=== PATIENT | female | born 1985 | race Caucasian/White ===

== ENCOUNTER 2023-09-08 14:22 | Emergency (ER) | payer SELFPAY ==
[2023-09-08 14:27] VITALS: BP 148/85; PULSE 96; RESP 16; TEMP 36.9; O2SAT 98; BMI 30.4
--- NOTE | 2023-09-08 15:03 | W.ED.EXTPRO ---
HPI - Extremity Problem General: Chief complaint: Extremity Problem,Nontraumatic Stated complaint: left leg pain Time Seen by Provider: 09/08/23 14:50 Source: patient Mode of arrival: ambulatory History of Present Illness: 37-year-old female presents to the emergency room with complaints of tender knotted areas under the skin bilaterally on her legs particularly on her left leg and posterior popliteal fossa. She is not had any chest pain or shortness of breath she is currently 28 weeks . No history of DVT she has been taking baby aspirin daily. MD Complaint: extremity pain Onset (ago): day(s) Relieving factors: nothing Exacerbating factors: nothing Associated symptoms: Deny chest pain, fever(s) or rash Review of Systems Const: Denies: fever(s) or chills Card: Denies: chest pain Resp: Denies: dyspnea GI: Denies: abdominal pain : Denies: dysuria, urinary frequency or urinary urgency Musc: Denies: neck pain or back pain Skin/Breast: Denies: rash Physical Exam Const: COMMON NORMALS: no acute distress GENERAL APPEARANCE: cooperative and comfortable ORIENTATION/CONSCIOUSNESS: Yes awake, Yes oriented to person, Yes oriented to place and Yes oriented to time HENMT: COMMON NORMALS: normocephalic, atraumatic and hearing grossly normal bilaterally HEAD & SCALP: normocephalic and atraumatic Resp: COMMON NORMALS: normal respiratory effort, No retractions, No use of accessory muscles and clear to auscultation bilaterally AUSCULTATION: clear to auscultation bilaterally Cardio: COMMON NORMALS: regular rate, regular rhythm and No murmurs present (Cardio) RATE: regular rate RHYTHM: regular rhythm Extremity: OTHER: Bilaterally patient has superficial thrombophlebitis that return to the touch palpable immediately underneath the surface of the skin both extremities negative Homans Neuro: SENSORIUM/ORIENTATION: Yes oriented to person, Yes oriented to place and Yes oriented to time Skin: COMMON NORMALS: no rashes or lesions noted GENERAL SKIN EXAM: no rashes or lesions noted Course Vital Signs: Vital signs: Vital Signs Temperature 98.4 F 09/08/23 14:27 Pulse Rate 96 09/08/23 14:27 Respiratory Rate 16 09/08/23 14:27 Blood Pressure 148/85 09/08/23 14:27 Pulse Oximetry 98 09/08/23 14:27 Oxygen Delivery Me thod Room Air 09/08/23 14:27 MDM - Extremity (Nontraumatic) Medical Decision Making Discussed DVT versus superficial thrombophlebitis. We will discharge patient home she can use ibuprofen but should not use it for more than the next 7 days for milligrams 3 times daily at the most topical moist heat and recheck if not improving. No radiology studies performed this visit Discharge Plan Discharge Patient Disposition: Home Clinical Impression: Superficial thrombophlebitis Condition: Stable Discharge Orders: Discharge ED (Routine); Ordered 09/08/23 Ordered By: Luis Manuel Jacobs Discharge Diet: Usual diet Discharge Activity: Increase activity as tolerated Patient Instructions: Superficial Thrombophlebitis (ED), Opioid Safety, Pain Management Activity Restrictions/Additional Instructions: Thank you for choosing [facility] for your healthcare needs today. Please realize this is an emergency room and that we are providing you with a medical screening exam and this may not be complete and all inclusive of all the testing and or work up that you may need to determine your ailment or severity of your illness. It is very important that you follow up as instructed or that you return to the Emergency Department should you have concerns or if your condition changes or worsens in any way. You were seen today with superficial thrombophlebitis. See the education instruction sheet that were given. You can use ibuprofen 400 mg 3 times a day but would not take this for more than the next 7 days because of the point at which you are in your . Follow-up if any further problems. Coding Level of Care Code ED [employer] for [employer]vin Vega
== END 2023-09-08 15:21 | disposition home or self-care (01) ==
PROVIDERS: Emergency Provider Family Medicine
DX: I80.03 Phlebitis and thrombophlebitis of superficial vessels of lower extremities, bilateral (principal)
CPT/HCPCS: 99282